=== PATIENT | male | born 1980 | race Caucasian/White ===

== ENCOUNTER 2020-05-19 14:58 | Emergency (ER) | payer OTHER ==
[~2020-05-19] VITALS: Ht 182.9 cm; Wt 81.6 kg
[2020-05-19 15:01] VITALS: BP 136/47
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
[2020-05-19] MEDS ORDERED: cefTRIAXone 1,000 MG in LIDOCAINE MPF 1% 2.1 ML IM ONE (15:30)
[2020-05-19] MEDS ORDERED: IBUPROFEN 600 MG TAB PO ONE (15:30)
[2020-05-19] MEDS ORDERED: cefTRIAXone 1,000 MG VIAL ONE (15:34)
[2020-05-19] MEDS ORDERED: LIDOCAINE MPF 1% 5 ML ONE (15:34)
[2020-05-19] MEDS ORDERED: CEPH500C16 PO (15:41)
[2020-05-19] MEDS ORDERED: SULF-58 PO (15:41)
[2020-05-19] MEDS ORDERED: IBUP-2213 PO (15:41)
[2020-05-19 15:52] VITALS: BP 136/47
--- NOTE | 2020-05-19 15:52 | NUR ---
Patient discharged with v/s stable. Written and verbal after care instructions given and explained. Patient alert, oriented and verbalized understanding of instructions. Ambulatory with steady gait. All questions addressed prior to discharge. ID band removed. Patient advised to follow up with PMD. Rx of KEFLEX, BACTRIM, IBUPROFEN given. Patient educated on indication of medication including possible reaction and side effects. Opportunity to ask questions provided and answered.
== END 2020-05-19 15:52 | disposition home or self-care (01) ==
LOC: MED 14:58
DX: L03.115 Cellulitis of right lower limb (principal); F15.10 Other stimulant abuse, uncomplicated; R03.0 Elevated blood-pressure reading, without diagnosis of hypertension; F17.210 Nicotine dependence, cigarettes, uncomplicated; Z79.899 Other long term (current) drug therapy
CPT/HCPCS: 96372; 99284; J0696; J2001